=== PATIENT | female | born 1975 | race Caucasian/White ===

== ENCOUNTER → 2020-11-26 | Outpatient (CLI) | payer OTHER | LOC: KOH-I 14:40 | DX: R05 Cough (principal); R10.9 Unspecified abdominal pain; M54.9 Dorsalgia, unspecified; M47.812 Spondylosis without myelopathy or radiculopathy, cervical region; M47.814 Spondylosis without myelopathy or radiculopathy, thoracic region; M50.31 Other cervical disc degeneration, high cervical region; M51.34 Other intervertebral disc degeneration, thoracic region; M51.37 Other intervertebral disc degeneration, lumbosacral region | CPT/HCPCS: 71046; 72050; 72070; 72100; 74018 ==